=== PATIENT | female | born 1935 | race Asian ===

== ENCOUNTER 2021-07-21 11:16 | Emergency (ER) | payer OTHER, MEDICARE, SELFPAY ==
[~2021-07-21] VITALS: Ht 154.9 cm; Wt 49.9 kg
--- NOTE | 2021-07-21 11:20 | NUR ---
Patient BIBA for left hip deformity. C/C patient was putting cat in her cage, tripped and fell. Patient sates no loss of conciousness occured. VSS. ALOx4. Fire team administered 50mcg on fentanyl states no pain while at rest and 6/10 when moving around.
--- NOTE | 2021-07-21 11:23 | NUR ---
Doc fatima in ED - 07/21/21 at 1130 by [email or web address] Placed in room 04 . Placed on classroom monitor, blood pressure machine and pulse oximeter. To gown for exam. Side rails up.
--- NOTE | 2021-07-21 11:23 | NUR ---
Patient to ER bed 07 to gown for evaluation. Side rails up.
[2021-07-21 11:24] VITALS: BP_SYST 128
--- NOTE | 2021-07-21 11:30 | NUR ---
RECEIVED PT IN BED 7, [facility] FOR CC OF L HIP PAIN S/P MECHANICAL FALL, SHORTENED, INTERNALLY ROTATED. PT IS NAD, VSS, PAIN CONTROLLED WITH FENTANYL 50 MCG IN ROUTE. PT TO BE FURTHER ASSESSED BY ED MD FOR DISPOSITION WITH PLAN OF CARE.
[2021-07-21 12:16] LABS: ANION GAP 9 (5-15); CALCIUM 8.6 mg/dL (8.4-11.0); CHLORIDE 105 mmol/L (98-107); CREATININE 0.77 mg/dL (0.55-1.30); GLUCOSE 130 mg/dL (70-99); POTASSIUM 3.6 mmol/L (3.5-5.1); SODIUM SERUM 142 mmol/L (136-145); UREA NITROGEN, BLOOD 18 mg/dL (8-21)
[2021-07-21 12:18] LABS: BASOPHILS % (AUTO) 0.4 % (0.0-2.0); EOSINOPHILS # (AUTO) 0.1 K/uL (0.0-0.4); EOSINOPHILS % (AUTO) 0.8 % (0.0-4.0); HEMATOCRIT 36.7 % (36-48); HEMOGLOBIN 12.2 g/dL (12.0-16.0); LYMPHOCYTES # (AUTO) 1.5 K/uL (1.0-5.5); LYMPHOCYTES % (AUTO) 24.7 % (20.5-51.5); MEAN CORPUSCULAR HEMOGLOBIN 31 pg (27-31); MEAN CORPUSCULAR HGB CONC 33 % (32-36); MEAN CORPUSCULAR VOLUME 92 fL (79.0-98.0); MONOCYTES # (AUTO) 0.2 K/uL (0.0-1.0); MONOCYTES % (AUTO) 3.9 % (1.7-9.3); NEUTROPHILS # (AUTO) 4.2 K/uL (1.8-7.7); NEUTROPHILS % (AUTO) 70.2 % (40.0-70.0); PLATELET COUNT (AUTO) 210 K/uL (130-430); RED BLOOD CELL COUNT(AUTO) 3.97 MIL/uL (4.2-6.2); RED CELL DISTRIBUTION WIDTH 13.5 % (9.0-15.0)
[2021-07-21 12:21] LABS: INR 0.9 (0.8-1.2); PROTHROMBIN TIME 9.8 SECS (9.5-12.5)
[2021-07-21 12:25] LABS: ALANINE AMINOTRANSFERASE 17 U/L (12-78); ALBUMIN 3.4 g/dL (3.4-4.8); ASPARTATE AMINOTRANSFERASE 18 U/L (10-37); TOTAL BILIRUBIN 0.5 mg/dL (0.0-1.0)
--- NOTE | 2021-07-21 12:25 | NUR ---
ED MD UPDATING PATIENT AND FAMILY ABOUT FRACTURE AND TRANSFERRING TO [facility]
[2021-07-21] MEDS ORDERED: BUPIVACAINE /PF 0.25% 30 ML VIAL INJ ONE (12:45)
[2021-07-21] MEDS ORDERED: LIDOCAINE 1% 10 MG/ML, 20 ML MDV INJ ONE (12:45)
--- NOTE | 2021-07-21 13:10 | NUR ---
ED MD COMPLETED MINOR FASCICULAR BLOCK TO LEFT HIP TO PROVIDE SOME PAIN CONTROL. PT STABLE AND TOLERATED WELL.
--- NOTE | 2021-07-21 14:56 | NUR ---
Alina Aquino called back to speak to Dr. Beard regarding pt status. Dr. Lynn stated he will consult pt per Dr. Beard. Addendum: 07/21/21 [address] Falk called and stated he will be taking the case RN and Notified
--- NOTE | 2021-07-21 15:30 | NUR ---
PER FAMILY AND PATIENT, REQUESTED TRANSFER TO [facility] FAMILY MEMBER IS PHYSICIAN AT FACILITY. WILL CALL [facility]TH[facility] AND ADMITTING MD FOR CANCEL OF ORDERS.
--- NOTE | 2021-07-21 15:35 | NUR ---
MD CHAMPION UPDATED WITH PATIENT ADMISSION STATUS. AGREEABLE TO PT REQUEST OF TRANSFER
--- NOTE | 2021-07-21 15:38 | NUR ---
TRANSFER INFO [facility] [place] ACCEPTING: [place] ORTHO: Dora Mendoza RM: [id number] REPORT: [phone] spoke to Ricardo
[2021-07-21 17:38] VITALS: BP_SYST 114
--- NOTE | 2021-07-21 17:45 | NUR ---
REPORT GIVEN TO [facility] AND [facility], RECEIVING RN. PROVIDED SBAR AND CURRENT VITAL SIGNS. ETA FOR [facility] IS 1800. PT STABLE AND TRANSFER REQUEST SIGNED.
--- NOTE | 2021-07-21 17:58 | NUR ---
16 # FR Salcido catheter with use of sterile technique. Immediate return of 200 cc urine noted. Bedside drainage bag placed below level of bladder. Urine sample collected and sent to lab. Pt tolerated procedure . Patient unable to toilet self.
[2021-07-21 18:30] LABS: BILIRUBIN,URINE NEGATIVE (NEGATIVE); BLOOD, URINE NEGATIVE (NEGATIVE); CLARITY/URINE CLEAR (CLEAR); COLOR,URINE YELLOW (YELLOW); GLUCOSE,URINE NEGATIVE (NEGATIVE); KETONES,URINE NEGATIVE (NEGATIVE); LEUKOCYTE ESTERASE ,URINE NEGATIVE (NEGATIVE); NITRITE, URINE NEGATIVE (NEGATIVE); PROTEIN URINE NEGATIVE (NEGATIVE); UROBILINOGEN,URINE 0.2 (0.2-1.0)
--- NOTE | 2021-07-21 18:45 | NUR ---
[facility] HERE FOR PICKUP, REPORT GIVEN TO EMT FOR TRANSFER.
--- NOTE | 2021-07-21 19:00 | NUR ---
Patient to be transferred to [facility]. Is being transferred due to higher level of care. Receiving facility has accepting physician and available space. ER physician has signed transfer form. Patient or responsible constitution party has agreed to transfer and signed form. Patient belongings inventoried and will be sent with patient. Copy of nursing notes, lab reports, EKG, Physicians Orders and X-rays to be sent with patient. Report called to at receiving facility. Receiving physician is BELLO. [facility] ambulance service has been called for transfer AND IS HERE.
== END 2021-07-21 19:00 | disposition short-term general hospital (02) ==
LOC: SED 12:03
DX: S72.141A Displaced intertrochanteric fracture of right femur, initial encounter for closed fracture (principal); Z20.822 Contact with and (suspected) exposure to COVID-19; Z79.899 Other long term (current) drug therapy; W01.0XXA Fall on same level from slipping, tripping and stumbling without subsequent striking against object, initial encounter; Y93.89 Activity, other specified; Y92.89 Other specified places as the place of occurrence of the external cause; Y99.8 Other external cause status
CPT/HCPCS: 36415; 71045; 73502; 80053; 81003; 84484; 85025; 85610; 85730; 86886; 86900; 86901; 87426; 93005; 99285; J2001; J3490